=== PATIENT | male | born 1995 ===

== ENCOUNTER 2025-06-26 05:12 | Emergency (ER) | payer SELFPAY ==
[~2025-06-26] VITALS: Ht 175.3 cm; Wt 79.3 kg
[2025-06-26 06:33] LABS: Hematocrit 42.2 % (41.0-53.0); Hemoglobin 13.9 g/dL (13.5-17.5); Mean Corpuscular Hemoglobin 25.6 pg (28.0-32.0); Mean Corpuscular Volume 77.5 fL (80.0-100.0); Nucleated Red Blood Cells % 0.1 %
[2025-06-26 06:46] LABS: Chloride 103 mmol/L (98-107); Sodium 141 mmol/L (136-145)
[2025-06-26 06:47] LABS: Anion Gap 9 (5-15); Carbon Dioxide 29 mmol/L (20-31)
[2025-06-26 06:48] LABS: Calcium 9.1 mg/dL (8.7-10.4)
[2025-06-26 06:53] LABS: BUN/Creatinine Ratio 8.5 (10.0-20.0); Blood Urea Nitrogen 9 mg/dL (9-23); Glucose 114 mg/dL (74-106); Potassium 3.3 mmol/L (3.5-5.1)
[2025-06-26 06:58] LABS: Urine Protein, UAD Negative (Negative)
[2025-06-26] MEDS: SODIUM CHLORIDE 0.9% 1,000 ML IV ONE (07:19)
--- NOTE | 2025-06-26 07:20 | ED.PDOC ---
GI ASSESSMENT HPI Comments 29y M who presents to the ED for chief complaint of abdominal pain. Pt states he has been having R sided abdominal pain since last night PM. Pt states the pain is constant, non-radiating, "squeezing" in nature, with no noted exacerbating or relieving factors. Pt has associated nausea with vomiting episode earlier /AM with associated constipation but otherwise denies diarrhea, fever,cough, chills, dysuria, hematuria or associated symptoms. Pt family member states pt did take ibuprofen earlier this AM for his pain and states his pain has improved a little bit since. Pt otherwise has stable vitals in the ED. Chief Complaint: Abdominal Pain Time Seen by MD: 06:59 Reviewed Notes: Medications Allergies: Coded Allergies: NO KNOWN ALLERGIES (Unverified , 06/26/25) Information Source: Patient, Friend Mode of Arrival: Ambulatory Past Medical History PAST MEDICAL HISTORY: Denies Surgical History: Denies all surgeries Family History Family History: Reviewed,noncontributory to illness Social History Smoker: Non-Smoker Alcohol: Denies ETOH Use Drugs: Denies Drug Use Lives In: Home Constitutional: denies: chills, diaphoresis, fatigue, fever, malaise, sweats, weakness, others EENTM: denies: blurred vision, double vision, ear bleeding, ear discharge, ear drainage, ear pain, ear ringing, eye pain, eye redness, hearing loss, mouth pain, mouth swelling, nasal discharge, nose bleeding, nose congestion, nose pain, photophobia, tearing, throat pain, throat swelling, voice changes, others Respiratory: denies: cough, hemoptysis, orthopnea, SOB at rest, shortness of breath, SOB with excertion, stridor, wheezing, others Cardiovascular: denies: chest pain, dizzy spells, diaphoresis, Dyspnea on exertion, edema, irregular heart beat, left arm pain, lightheadedness, palpitations, PND, syncope, others Gastrointestinal: reports: abdominal pain, constipated, nausea, vomiting; denies: abdomen distended, blood streaked bowels, diarrhea, dysphagia, difficulty swallowing, hematemesis, melena, poor appetite, poor fluid intake, rectal bleeding, rectal pain, others Genitourinary: denies: burning, dysuria, flank pain, frequency, hematuria, incontinence, penile discharge, penile sore, pain, testicle pain, testicle swelling, urgency, others Neurological: denies: dizziness, fainting, headache, left sided numbness, left sided weakness, numbness, paresthesia, pre-existing deficit, right sided numbness, right sided weakness, seizure, speech problems, tingling, tremors, weakness, others Musculoskeletal: denies: back pain, gout, joint pain, joint swelling, muscle pain, muscle stiffness, neck pain, others Integumetry: denies: bruises, change in color, change in hair/nails, dryness, laceration, lesions, lumps, rash, wounds, others Allergic/Immunocompromised: denies: Difficulty Healing, Frequent Infections, Hives, Itching, others Hematologic/Lymphatic: denies: anemia, blood clots, easy bleeding, easy bruising, swollen glands, others Endocrine: denies: excessive hunger, excessive sweating, excessive thirst, excessive urination, flushing, intolerance to cold, intolerance to heat, unexplained weight gain, unexplained weight loss, others Psychiatric: denies: anxiety, bipolar disorder, depression, hopeless, panic disorder, schizophrenia, sleepless, suicidal, others All Other Systems: Reviewed and Negative Physical Exam General Appearance: No Apparent Distress, Normal HEENT: Normal ENT Inspection, Pharynx Normal, TMs Normal Neck: Full Range of Motion, Non-Tender, Normal, Normal Inspection Respiratory: Chest Non-Tender, Lungs Clear, No Accessory Muscle Use, No Respiratory Distress, Normal Breath Sounds Cardiovascular: No Edema, No JVD, No Murmur, No Gallop, Normal Peripheral Pulses, Regular Rate/Rhythm Breast Exam: Deferred Gastrointestinal: RUQ (tenderness to palpation) Genitalia: Deferred Pelvic: Deferred Rectal: Deferred Extremities: No calf tenderness, Normal capillary refill, Normal inspection, Normal range of motion, Non-tender, No pedal edema Musculoskeletal : Apperance: Normal Neurologic: Alert, emergency service worker II-XII nml as Tested, No Motor Deficits, Normal Affect, Normal Mood, No Sensory Deficits Cerebellar Function: Normal Reflexes: Normal Skin: Dry, Normal Color, Warm Lymphatic: No Adenopathy Was a procedure done? Was a procedure done?: No GI differential Dx Differential Diagnosis: Cholecystitis, Constipation, Gastritis/PUD, Gastroenteritis, Pancreatitis, Dehydration, Electrolyte Imbalance, Food Poisoning, Bacterial, Viral, Anemia, Stress Ulcer, Kidney Stone X-Ray, Labs, Meds, VS Vital Signs Date Time Temp Pulse Resp B/P (MAP) Pulse Ox O2 Delivery O2 Flow Rate FiO2 06/26/25 09:02 74 20 122/64 06/26/25 07:27 82 16 100 Room Air* 0 21 06/26/25 07:27 98.2 82 16 141/77 (98) 100 98.2 06/26/25 07:23 82 16 141/77 06/26/25 05:14 97.9 74 18 145/101 98 97.9 Lab Test 06/26/25 05:57 06/26/25 05:34 Range/Units White Blood Count 6.9 4.4-10.8 10^3/uL Red Blood Count 5.44 4.5-5.90 10^6/uL Hemoglobin 13.9 13.5-17.5 g/dL Hematocrit 42.2 41.0-53.0 % Mean Corpuscular Volume 77.5 L 80.0-100.0 fL Mean Corpuscular Hemoglobin 25.6 L 28.0-32.0 pg Mean Corpuscular Hemoglobin Concent 33.0 32.0-36.0 g/dL Red Cell Distribution Width 13.3 11.8-14.3 % Platelet Count 278 140-450 10^3/uL Mean Platelet Volume 8.1 6.9-10.8 fL Neutrophils (%) (Auto) 46.8 37.0-80.0 % Lymphocytes (%) (Auto) 42.7 10.0-50.0 % Monocytes (%) (Auto) 7.2 0.0-12.0 % Eosinophils (%) (Auto) 2.5 0.0-7.0 % Basophils (%) (Auto) 0.8 0.0-2.0 % Neutrophils # (Auto) 3.2 1.6-8.6 10 ^3/uL Lymphocytes # (Auto) 2.9 0.4-5.4 10 ^3/uL Monocytes # (Auto) 0.5 0-1.3 10 ^3/uL Eosinophils # (Auto) 0.2 0-0.8 10 ^3/uL Basophils # (Auto) 0.1 0-0.2 10 ^3/uL Nucleated Red Blood Cells 0.1 % Sodium Level 141 136-145 mmol/L Potassium Level 3.3 L 3.5-5.1 mmol/L Chloride Level 103 98-107 mmol/L Carbon Dioxide Level 29 20-31 mmol/L Anion Gap 9 5-15 Blood Urea Nitrogen 9 9-23 mg/dL Creatinine 1.06 0.700-1.30 mg/dL Glomerular Filtration Rate Calc 99 >90 mL/min BUN/Creatinine Ratio 8.5 L 10.0-20.0 Serum Glucose 114 H 74-106 mg/dL Calcium Level 9.1 8.7-10.4 mg/dL Urine Color Light-yellow Yellow Urine Clarity Clear Clear Urine pH 5.5 5.0-9.0 Urine Specific [place] 1.018 1.001-1.035 Urine Protein Negative Negative Urine Ketones Negative Negative Urine Blood Trace H Negative /uL Urine Nitrite Negative Negative Urine Bilirubin Negative Negative Urine Urobilinogen Normal Negative mg/dL Urine Leukocyte Esterase Trace Negative /uL Urine RBC 3 0 - 3 /hpf Urine Microscopic WBC 7 H 0-3 /HPF Urine Squamous Epithelial Cells Few <5 /hpf Urine Bacteria None seen None Seen /hpf Urine Mucus Few None Seen Urine Glucose Normal Normal mg/dL Current Medications Medications (Trade) Dose Ordered Sig/Nivia Route Start Time Stop Time Status Last Admin Sodium Chloride 1,000 ml @ 1,000 mls/hr Q1H ONCE IV 06/26/25 07:00 06/26/25 07:59 DC 06/26/25 07:19 Ondansetron HCl (Zofran) 4 mg ONCE ONCE IV 06/26/25 07:00 06/26/25 07:01 DC 06/26/25 07:22 Morphine Sulfate 4 mg ONCE ONCE IV 06/26/25 07:00 06/26/25 07:01 FL 06/26/25 07:23 [place] [id number] Ph: [phone] DIAGNOSTIC IMAGING Diagnostic Imaging Report : [id number] Signed PATIENT: DIANE ARAGON ACCT: [id number] UNIT: [id number] : 1995 LOC: ER ROOM / BED: / AGE / SEX: 29 / M ADM STATUS: REG ER SERVICE [id number] ORDERING PHYSICIAN: LETICIA NUNES MD PROCEDURE(s): GBUS - GALLBLADDER REASON: ruq pain ORDER NUMBER(s): [id number], ACCESSION NUMBER(s): [id number] CLINICAL INFORMATION: Right upper quadrant pain. TECHNIQUE: Grayscale sonographic imaging of the right upper quadrant of the abdomen was performed, assisted by color Doppler techniques. COMPARISON: None FINDINGS: The gallbladder wall measures 2.2 mm in thickness, within normal limits. No stones are seen. Negative reported sonographic Ambrocio's sign. The common bile duct measures 4.2 mm in diameter, within normal limits. The liver is enlarged, measuring up to 19.3 cm in craniocaudal dimension. There is increased echogenicity of the liver, consistent with fatty infiltration. Main portal vein is patent with normal hepatopetal flow demonstrated. The pancreas is partly obscured, likely by bowel gas. The visualized portions appear normal. The right kidney measures 9.8 cm. There is very mild hydronephrosis. Right renal cortical echogenicity and cortical thickness are within normal limits. The left kidney was also evaluated for comparison. Left kidney measures 10.6 cm in length with no hydronephrosis. Normal cortical echogenicity and cortical thickness of the left kidney. IMPRESSION: 1. No sonographic evidence of acute cholecystitis. 2. Hepatomegaly and hepatic steatosis. 3. Very mild right hydronephrosis. ATED BY: SAWYER STONE DO DICTATED DATE/TIME: 06/26/25715 SIGNED BY: SAWYRE STONE DO SIGNED DATE/TIME: 06/26/25715 CC: Time of 1ST Reevaluation: 07:30 Reevaluation 1ST: Unchanged Patient Education/Counseling: Diagnosis, Treatment Family Education/Counseling: Diagnosis, Treatment SEPSIS Sepsis Screen Date sepsis recognized/suspect: Jun 26, 2025 Time Sepsis recognized/suspect: 0518 Recent Procedure: No On Antibiotic Therapy: No Respiratory Rate >20: No Heart Rate >90: No Temp<36 C (96.8 F) or >38.3 C: No SBP <90 or MAP <65 mmHG: No New Acute Mental Status Change: No Is the patient on CPAP, BIPAP,: No Physician Orders Gallbladder (06/26/25 06:46) Ct Ab Pel Wo Con-No Oral Or Iv (06/26/25 08:00) Morphine Sulfate Injection (06/26/25 10:15) Ondansetron Hcl (Zofran) (06/26/25 10:15) Ketorolac Injection (Toradol Injection) (06/26/25 10:15) Tamsulosin Hydrochloride (Flomax) (06/26/25 10:15) * Urology Consult (06/26/25 10:03) Vital Signs Date Time Temp Pulse Resp B/P (MAP) Pulse Ox O2 Delivery O2 Flow Rate FiO2 06/26/25 09:02 74 20 122/64 06/26/25 07:27 82 16 100 Room Air* 0 21 06/26/25 07:27 98.2 82 16 141/77 (98) 100 98.2 06/26/25 07:23 82 16 141/77 06/26/25 05:14 97.9 74 18 145/101 98 97.9 Laboratory Tests Test 06/26/25 05:57 White Blood Count 6.9 10^3/uL (4.4-10.8) Medications Medications Dose Ordered Sig/Nivia Route Start Time Stop Time Status Last Admin Dose Admin Morphine Sulfate 4 mg ONCE ONCE IV 06/26/25 07:00 06/26/25 07:01 DC 06/26/25 07:23 Ondansetron HCl 4 mg ONCE ONCE IV 06/26/25 07:00 06/26/25 07:01 DC 06/26/25 07:22 Sodium Chloride 1,000 ml @ 1,000 mls/hr Q1H ONCE IV 06/26/25 07:00 06/26/25 07:59 DC 06/26/25 07:19 Departure 1 Departure Time of Disposition: 10:05 (Patient presented with abdominal pain that was concerning for possible appendicits, gastritis, cholecystitis, colitis, gastroenteritis, sbo, or orther possible surgical emergency. Data: 1. I ordered and reviewed the result of at least 3 labs including a CBC, BMP, and Urinalysis. 2. I independently interpreted the following tests: CT Abdomen and Pelvis is concerning for _ ureteral colic with hydronephrosis .Risk:This patient has a high risk of morbidity due to further diagnostic testing or treatment and may suffer from an acute abdominal process disorder. Workup reveals an obstructing stone with hydronephrosis and ureteral colic and patient should be admitted for further workup. and possible expert consultation. ) Impression: Primary Impression: Ureteral colic Additional Impressions: Intractable abdominal pain Flank pain Hydronephrosis Disposition: ADMITTED INPATIENT Admit to: Med Surg Condition: Guarded Critical Care Note Critical Care Time?: Yes Critical care comment: Intractable abdominal pain Authorized and Performed by: Leticia Nunes MD Total critical care time: Approximately 38 minutes Due to a high probability of clinically significant, life threatening deterioration, the patient required my highest level of preparedness to intervene emergently and I personally spent this critical care time directly and personally managing the patient. This critical care time included obtaining a history; examining the patient; pulse oximetry; ordering and review of studies; arranging urgent treatment with development of a management plan; evaluation of patient's response to treatment; frequent reassessment; and, discussions with other providers. This critical care time was performed to assess and manage the high probability of imminent, life-threatening deterioration that could result in multi-organ failure. It was exclusive of separately billable procedures and treating other patients and teaching time. Please see my other sections and the rest of the note for further information on patient assessment and treatment. Stability Stability form required: No Heart Score Heart Score: Heart Score Response (Comments) Value History N/A 0 EKG N/A 0 Age N/A 0 Risk Factors N/A 0 Troponin N/A 0 Total 0 I personally scribed for LETICIA NUNES MD ([email or web address]) on 06/26/25 at 07:20. Electronically submitted by Clair Jacome ([email or web address]). I personally scribed for LETICIA NUNES MD ([email or web address]) on 06/26/25 at 07:21. Electronically submitted by Clair Jacome ([email or web address]). I personally scribed for LETICIA NUNES MD ([email or web address]) on 06/26/25 at 08:01. Electronically submitted by Clair Jacome ([employer]). I personally scribed for LETICIA NUNES MD ([email or web address]) on 06/26/25 at 09:51. Electronically submitted by Delores Rangel ([facility]). LETICIA NUNES MD Jun 26, 2025 07:20
[2025-06-26] MEDS: ONDANSETRON HCL 4 MG/2 ML VIAL IV ONE ×2 (07:22→10:16)
[2025-06-26] MEDS: MORPHINE SULFATE 4 MG/ML SYR/VIAL IV ONE ×2 (07:23→10:18)
[2025-06-26 07:27] VITALS: PULSE 82; RESP 16; O2SAT 100
--- NOTE | 2025-06-26 08:48 | DVH ---
CLINICAL INFORMATION: Abdominal pain. TECHNIQUE: Axial CT images of the abdomen and pelvis were obtained without IV contrast. Coronal and sagittal reformatted images were obtained, reviewed, and stored. Evaluation of the parenchymal organs is limited without IV contrast. Evaluation of the bowel and mesentery is limited without oral contrast. All CT scans at this medical facility are performed using dose modulation techniques as appropriate to a performed exam including the following: Automated exposure control was utilized; adjustment of the MA and/or KV according to patient size; and use of iterative reconstruction technique. CTDIvol = 11.86 mGy DLP = 696.51 mGy-cm COMPARISON: None FINDINGS: Lung bases: Lung bases are clear. Liver: Hepatic steatosis. Focal fatty sparing near the gallbladder fossa. Liver is mildly enlarged, measuring up to 17.7 cm in craniocaudal dimension at the midclavicular line. Biliary: No calcified gallstones or biliary ductal dilatation. Spleen: Unremarkable. Pancreas: Grossly unremarkable in its noncontrast enhanced appearance. Adrenal glands: Unremarkable. No mass. Kidneys and bladder: Mild right hydronephrosis with 2 mm calculus in the right posterior bladder at or near the right ureterovesical junction, may be an obstructing calculus at the ureterovesical junction or recently passed calculus in the posterior bladder, not well delineated on these images. 1 mm no nobstructing calculus at the mid to inferior pole of the right kidney. No hydronephrosis or renal or ureteral calculi on the left. Aorta/Vascular: No aneurysm or significant calcification. Lymph nodes: No mass or lymphadenopathy. Bowel/mesentery: No small bowel obstruction. No free air or free fluid. Appendix is visualized and appears unremarkable. Pelvic organs: Grossly unremarkable. Abdominal wall: No mass or hernia. Bones: No acute fracture or suspicious intraosseous lesion. IMPRESSION: 1. 2 mm calculus at or near the right ureterovesical junction with mild right hydronephrosis. Possibly an obstructing calculus at the ureterovesical junction or recently passed calculus in the posterior bladder. Correlate with clinical findings. 2. 1 mm nonobstructing calculus at the mid to inferior pole of the right kidney. 3. Hepatomegaly and hepatic steatosis. 4. Additional findings as described above.
[2025-06-26] MEDS: TAMSULOSIN HYDROCHLORIDE 0.4 MG CAP PO ONE (11:04)
[2025-06-26] MEDS: KETOROLAC TROMETH 30 MG/ML 1ML VIAL IV ONE (11:04)
[2025-06-26] MEDS ORDERED: OXYC-900 PO (11:45)
[2025-06-26] MEDS ORDERED: TAMS-35 PO (11:45)
--- NOTE | 2025-06-26 11:46 | ED.PDOC ---
Departure 1 Departure Time of Disposition: 11:44 (Discussed with the patient patient has not want to be admitted. We will trial patient with home medications and outpatient follow up.) Impression: Primary Impression: Ureteral colic Additional Impressions: Hydronephrosis Intractable abdominal pain Flank pain Disposition: HOME / SELF CARE / HOMELESS Condition: Stable Referrals: HORACE BO MD Additional Instructions: You have a kidney stone. You were prescribed flomax. Please take as directed. For pain you can take the followinam: Ibuprofen 400mg with food Noon: Acetaminophen 1000mg 4pm: Ibuprofen 400mg with food 8pm: Acetaminophen 1000mg You were prescribed oxycodone to take as needed for breakthrough pain. Please take as directed. You should follow up with your regular doctor or a urologist within one week to ensure you are doing better. If your symptoms worsen or you have any other concerns then please return to the ER. e-Prescriptions Oxycodone HCl (Oxycodone Hydrochloride) 5 Mg Tab 5 MG PO QID PRN for 5 Days, #20 TAB Prov: LETICIA NUNES MD 06/26/25 Tamsulosin Hcl (Flomax) 0.4 Mg Cap 1 CAP PO DAILY for 14 Days, #30 CAP 11 Refills Prov: LETICIA NUNES MD 06/26/25 Discharged With: Self LETICIA NUNES MD Jun 26, 2025 11:46
[2025-06-26 12:05] VITALS: BP 132/61; PULSE 72; RESP 18; TEMP 98; O2SAT 99
== END 2025-06-26 12:06 | disposition home or self-care (01) ==
LOC: ER 05:12
DX: N13.2 Hydronephrosis with renal and ureteral calculous obstruction (principal); N23 Unspecified renal colic
CPT/HCPCS: 36415; 74176; 76705; 80048; 81001; 85025; 96361; 96374; 96375; 96376; 99285; J1885; J2270; J2405; J7030; 96365; 99291